=== PATIENT | male | born 1955 | race Hispanic/Latino ===

== ENCOUNTER 2017-09-04 12:09 | Emergency (ER) | payer BC ==
[2017-09-04 12:18] VITALS: RESP 18; TEMP 98.9; O2SAT 97
[2017-09-04] MEDS ORDERED: Morphine 4 mg/ml ISec IM STA (12:40)
--- NOTE | 2017-09-04 12:42 | ED PDOC ---
Arrival/HPI - General Chief Complaint: Upper Extremity Problem/Injury Time Seen by Provider: 09/04/17 12:16 Historian: Patient - History of Present Illness Narrative History of Present Illness (Text): 09/04/17 12:40 62 year old male, whose past medical history includes COPD, presents to the emergency department complaining of pain in the R shoulder and to the right side ribcage. Patient states fell 4 days ago and was diagnosed with a right clavicle fracture at [facility] ER 3 days ago. Patient was discharged with a sling, states prescribed 10 doses of Oxycodone, and told to follow up with the orthopedist in one week. He is requesting for more pain medication as he took the last one this morning. Patient took his last dose of Oxycodone 7 hours ago. Patient states he has yet to schedule an appointment with an orthopedist or his PMD. Patient is also complaining of cough with phlegm x 3 days, but denies any fever, chills, chest pain, shortness of breath, nausea, vomiting, diarrhea, urinary symptoms, back pain, neck pain, headache, dizziness, or any other complaints. PMD: Dr. Yao Past Medical History - Provider Review Nursing Documentation Reviewed: Yes - Cardiac Hx Cardiac Disorders: No - Pulmonary Hx Respiratory Disorders: Yes Hx Chronic Obstructive Pulmonary Disease (COPD): Yes - Neurological Hx Neurological Disorder: No - HEENT Hx HEENT Disorder: No - Renal Hx Renal Disorder: No - Endocrine/Metabolic Hx Endocrine Disorders: No - Hematological/Oncological Hx Blood Disorders: No - Integumentary Hx Dermatological Disorder: No - Musculoskeletal/Rheumatological Hx Musculoskeletal Disorders: Yes Hx Fractures: Yes - Gastrointestinal Hx Gastrointestinal Disorders: Yes Hx Gastroesophageal Reflux: Yes - Genitourinary/Gynecological Hx Genitourinary Disorders: No - Psychiatric Hx Psychophysiologic Disorder: No Hx Substance Use: No - Surgical History Hx Appendectomy: Yes Other/Comment: HEMORRHOID Family/Social History - Physician Review Nursing Documentation Reviewed: Yes Family/Social History: No Known Family HX Smoking Status: Never Smoked Hx Alcohol Use: Yes Frequency of alcohol use: Socially Hx Substance Use: No Allergies/Home Meds Allergies/Adverse Reactions: Allergies Penicillins Allergy (Verified 09/04/17 12:12) ANAPHYLAXIS Home Medications: Home Meds Medication Instructions Recorded Confirmed No Known Home Med 09/04/17 09/04/17 Review of Systems - Physician Review All systems were reviewed & negative as marked: Yes - Review of Systems Constitutional: absent: Fevers Respiratory: absent: SOB Physical Exam - Physical Exam Narrative Physical Exam (Text): Constitutional: No acute distress. Head: Normocephalic. Atraumatic. Eyes: PERRL. ENT: Moist mucous membranes. Neck: Supple. Cardiovascular: Regular rate. Chest: Tenderness to the right ribcage. No deformity. No crepitus. Respiratory: Clear to auscultation bilaterally. GI: Soft. Nontender. Nondistended. Back: No CVA tenderness. Musculoskeletal: Ecchymosis to the superior right shoulder. Skin: No rash. Neurologic: Alert, no focal deficit. Vital Signs Reviewed: Yes Vital Signs Temp Pulse Resp BP Pulse Ox 09/04/17 12:12 98.9 F 95 H 18 158/98 H 97 Medical Decision Making ED Course and Treatment: Plan: -- Chest X-ray 2V to exclude pneumonia. -- Morphine IM for pain. Progress Notes: 09/04/17 13:05 CXR Impression: As read by me, no rib fracture, no pneumothorax, no pneumonia, no pleural effusion. [employer] checked, oxycodone prescription filled 2 days ago for 20 tabs. When informed patient of this, he states that "some fell out." Unable to fill additional narcotic prescription due to 5 day course already prescribed. Advised patient to f/u with PMD for further pain control. CXR does not appear to show a clavicle fracture although not a dedicated clavicle film. - RAD Interpretation Radiology Orders: 09/04/17 12:40 CHEST TWO VIEWS (PA/LAT) [RAD] Stat - Medication Orders Current Medication Orders: Discontinued Medications Morphine Sulfate (Morphine) 4 mg IM STAT STA Stop: 09/04/17 12:41 Last Admin: 09/04/17 12:45 Dose: 4 mg MAR Pain Assessment Document 09/04/17 12:45 LA (Rec: 09/04/17 12:45 LA [id number]) Pain Reassessment Is this a pain reassessment? No Sleep Is patient sleeping during reassessment? No Presence of Pain Presence of Pain Yes Pain Scale Used Pain Scale Used Numeric Location Left, Right or Bilateral Right Pain Location Body Site Shoulder Description Description Constant Intensity of Pain at present 10 Pain Behavior Guarding IM Administration Charges Document 09/04/17 12:45 LA (Rec: 09/04/17 12:45 LA [id number]) Injection Site MAR Injection Site Left Arm Charges for Administration # of IM Administrations 1 - Scribe Statement The provider has reviewed the documentation as recorded by the Scribe Ken Huddleston Provider Scribe Attestation: All medical record entries made by the Scribe were at my direction and personally dictated by me. I have reviewed the chart and agree that the record accurately reflects my personal performance of the history, physical exam, medical decision making, and the department course for this patient. I have also personally directed, reviewed, and agree with the discharge instructions and disposition. Disposition/Present on Arrival - Present on Arrival Any Indicators Present on Arrival: No History of DVT/PE: No History of Uncontrolled Diabetes: No Urinary Catheter: No History of Decub. Ulcer: No History Surgical Site Infection Following: None - Disposition Have Diagnosis and Disposition been Completed?: Yes Diagnosis: Clavicle fracture Disposition: HOME/ ROUTINE Disposition Time: 13:10 Patient Plan: Discharge Patient Problems: Current Active Problems Problem Status Onset Clavicle fracture Acute Condition: STABLE Discharge Instructions (ExitCare): Clavicle Fracture (DC) Referrals: Tu Yao DO [Primary Care Provider] - Follow up with primary Otto Tran DO [Staff Provider] - Follow up with primary Forms: [employer] (Czech)
--- NOTE | 2017-09-04 13:26 | RAD ---
Date of service: 09/04/2017 HISTORY: fall, productive cough COMPARISON: No prior. TECHNIQUE: Chest PA and lateral FINDINGS: LUNGS: No active pulmonary disease. PLEURA: No significant pleural effusion identified. No pneumothorax apparent. CARDIOVASCULAR: Normal. OSSEOUS STRUCTURES: No significant abnormalities. VISUALIZED UPPER ABDOMEN: Normal. OTHER FINDINGS: None. IMPRESSION: No active disease.
[2017-09-04 13:48] VITALS: BP 150/90; PULSE 90
== END 2017-09-04 13:47 | disposition home or self-care (01) ==
LOC: ED 12:09
DX: S42.001A Fracture of unspecified part of right clavicle, initial encounter for closed fracture (principal); W19.XXXA Unspecified fall, initial encounter
CPT/HCPCS: 71046; 96372; 99283; J2270